=== PATIENT | female | born 2000 | race Caucasian/White ===

== ENCOUNTER → 2021-07-16 | Outpatient (CLI) | payer OTHER ==
--- NOTE | 2021-07-16 13:35 | REP ---
INDICATION: PREG, ANATOMY. COMPARISON: None. TECHNIQUE: Transabdominal obstetric sonography FINDINGS: Scanning through the gravid uterus demonstrates a viable single intrauterine gestation in transverse lie. motion is observed and heart rate is recorded at is 149 beats per minute. A posterior placenta is seen, grade 0, without evidence of placenta previa. Closed cervical length is measured at 3.3 cm transabdominally. No extrauterine abnormality is observed. Amniotic fluid is subjectively normal. No anomaly is seen. The following anatomic structures are identified and felt to be sonographically unremarkable: cranium, choroid plexus, cavum, cerebellum and posterior fossa, face and profile, lungs, left-sided stomach, abdominal wall cord insertion, three-vessel umbilical cord, kidneys and bladder, spine, and upper and lower extremities. Four-chamber heart, cardiac outflow tract views, and diaphragm are less than optimally visualized due to position. Biometry chart: BPD 5.2 cm, 21 weeks 5 days Head circumference 19.1 cm, 21 weeks 3 days Abdominal circumference 16.7 cm, 21 weeks 5 days Femur length 3.5 cm, 21 weeks 0 days Humeral length 3.2 cm, 20 weeks 6 days HC AC ratio normal 1.15 Cephalic index normal 0.75 Estimated weight 420 g, 0 lb 14 oz, 44th percentile for 21 weeks 3 days IMPRESSION: Viable single intrauterine gestation at 21 weeks 2 days by today's composite sonographic criteria. SKIP by today's sonography November 24, 2021. No complication identified. Expected gestational age estimate based on given SKIP of 23 November 2021 is 21 weeks 3 days. heart and diaphragm visualization less than optimal due to variable position. <Electronically signed by Jules Elena > 07/16/21 [id number]
== END ==
LOC: M RAD 10:24
PROVIDERS: ATTEND Registered Nurse
DX: Z34.82 Encounter for supervision of other normal pregnancy, second trimester (principal)

== ENCOUNTER → 2021-07-22 | Outpatient (CLI) | payer OTHER ==
--- NOTE | 2021-07-23 16:50 | ECGEPIP ---
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 No prior ECG available for comparison at the time of interpretation. Electronically Signed on 07-23-2021 16:50:23 EDT by Etienne Richard
== END ==
LOC: M EKG 09:38
PROVIDERS: ATTEND Obstetrics & Gynecology
DX: O24.112 Pre-existing type 2 diabetes mellitus, in pregnancy, second trimester (principal); Z3A.20 20 weeks gestation of pregnancy

== ENCOUNTER → 2021-09-04 | Outpatient (CLI) | payer OTHER ==
--- NOTE | 2021-09-04 14:24 | REP ---
INDICATION: PREG, GROWTH- INULIN DIABETIC COMPARISON: 07/16/2021 TECHNIQUE: Transabdominal obstetrical ultrasound with color Doppler evaluation. FINDINGS: Examination demonstrates a single live intrauterine in cephalic presentation. motion is identified by technologist. Placenta is noted posterior and grade 1 without evidence for placenta previa or abruption. Amniotic fluid volume is normal. Cervix measures 3.4 cm in length and appears closed.. Selected gestational age: 28 weeks 4 days with SKIP 11/23/2021. Gestational age by current measurements 29 weeks 2 days with SKIP 11/18/2021. FHR equals 137 beats per minute. BPD: 7.4 cm at 29 weeks 6 days HC: 27.6 cm at 30 weeks 1 day AC: 24.7 cm at 29 weeks 0 days FL: 5.5 cm at 28 weeks 6 days HL: 4.9 cm at 28 weeks 5 days HC/AC: 1.12 Estimated weight 1335 grams (56thpercentile). JANE: 11.3 cm Umbilical artery SD ratio: 3.35 IMPRESSION: Single live intrauterine in cephalic presentation demonstrating appropriate interval growth. <Electronically signed by Carroll Edwards > 09/04/21 [id number]
== END ==
LOC: M RAD 13:38
PROVIDERS: ATTEND Registered Nurse
DX: Z34.03 Encounter for supervision of normal first pregnancy, third trimester (principal); Z3A.28 28 weeks gestation of pregnancy

== ENCOUNTER 2021-09-13 15:11 | Outpatient (CLI) | payer OTHER ==
[~2021-09-13] VITALS: Ht 154.9 cm; Wt 81.6 kg
[2021-09-13 15:29] VITALS: BP 127/79
[2021-09-13] MEDS ORDERED: INSUR50VL SC (15:34)
[2021-09-13] MEDS ORDERED: INSURSD SC (15:34)
[2021-09-13] MEDS ORDERED: PRENTAB9 PO (15:34)
[2021-09-13] MEDS ORDERED: HOME MED LIST COMPLETE! XX SCH (15:40)
== END 2021-09-13 17:04 | disposition home or self-care (01) ==
LOC: M LDO 15:11
PROVIDERS: ATTEND Obstetrics & Gynecology
DX: O99.810 Abnormal glucose complicating pregnancy (principal); O24.119 Pre-existing type 2 diabetes mellitus, in pregnancy, unspecified trimester; E11.9 Type 2 diabetes mellitus without complications; Z3A.00 Weeks of gestation of pregnancy not specified; Z03.79 Encounter for other suspected maternal and fetal conditions ruled out
CPT/HCPCS: 59025; 76815; G0378; G0463

== ENCOUNTER → 2021-09-20 | Outpatient (CLI) | payer OTHER ==
[~2021-09-20] MED LIST: INSUR50VL SC; INSURSD SC; PRENTAB9 PO
[2021-09-20 12:14] LABS: BASO % 0.3 % (0.0-1.0); EOS # 0.1 10^3/uL (0.0-0.5); EOS % 0.6 % (0.0-3.0); HEMATOCRIT 35.8 % (36.0-47.0); HEMOGLOBIN 11.9 g/dl (12.0-15.5); LYMPH # 2.4 10^3/uL (1.5-5.0); LYMPH % 16.2 % (24.0-44.0); MEAN CORPUSCULAR HEMOGLOBIN 29.2 pg (27.0-33.0); MEAN CORPUSCULAR HGB CONC 33.2 g/dl (32.0-36.5); MEAN CORPUSCULAR VOLUME 87.7 fl (80.0-96.0); MONO # 0.6 10^3/uL (0.0-0.8); MONO % 4.2 % (2.0-8.0); NEUTROPHILS # 11.3 10^3/uL (1.5-8.5); NEUTROPHILS % 77.5 % (36.0-66.0); PLATELET COUNT, AUTOMATED 421 10^3/uL (150-450); RED BLOOD COUNT 4.08 10^6/uL (4.00-5.40); WHITE BLOOD COUNT 14.5 10^3/uL (4.0-10.0)
--- NOTE | 2021-09-20 12:42 | ECGEPIP ---
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
[2021-09-20 12:46] LABS: ALBUMIN 2.8 GM/DL (3.2-5.2); ALT/SGPT 12 U/L (12-78); BILIRUBIN,TOTAL 0.2 MG/DL (0.2-1.0); BLOOD UREA NITROGEN 8 MG/DL (7-18); CALCIUM LEVEL 9.4 MG/DL (8.5-10.1); CARBON DIOXIDE LEVEL 22 MEQ/L (21-32); CHLORIDE LEVEL 109 MEQ/L (98-107); CREATININE FOR GFR 0.58 MG/DL (0.55-1.30); GLUCOSE, FASTING 131 MG/DL (70-100); NT-PRO BNP 14 PG/ML (<125); POTASSIUM SERUM 3.7 MEQ/L (3.5-5.1); SODIUM LEVEL 140 MEQ/L (136-145); TOTAL PROTEIN 6.7 GM/DL (6.4-8.2)
[2021-09-20 15:56] LABS: APPEARANCE, URINE CLEAR (CLEAR); BACTERIA, URINE AUTO 1+ (NEGATIVE); BILIRUBIN, URINE AUTO NEGATIVE (NEGATIVE); BLOOD, URINE BLOOD NEGATIVE (NEGATIVE); COLOR, URINE YELLOW (YELLOW); GLUCOSE, URINE (UA) AUTO 1+ mg/dL (NEGATIVE); KETONE, URINE AUTO NEGATIVE (NEGATIVE); LEUKOCYTE ESTERASE, URINE AUTO 1+ (NEGATIVE); MUCUS, URINE SMALL (NEGATIVE); NITRITE, URINE AUTO NEGATIVE (NEGATIVE); PROTEIN, URINE AUTO NEGATIVE (NEGATIVE); RBC, URINE AUTO 1 /HPF (0-3); SPECIFIC GRAVITY URINE AUTO 1.017 (1.002-1.035); SQUAMOUS EPITHELIAL CELL UR AU 6 /HPF (0-6); UROBILINOGEN, URINE AUTO 0.2 mg/dL (0.0-2.0); WBC, URINE AUTO 8 /HPF (0-3)
== END ==
LOC: M EKG 11:31
PROVIDERS: ATTEND Obstetrics & Gynecology
DX: R00.0 Tachycardia, unspecified (principal); R00.2 Palpitations

== ENCOUNTER 2021-09-25 10:04 | Outpatient (CLI) | payer OTHER ==
[~2021-09-25] VITALS: Ht 154.9 cm; Wt 82.2 kg
[2021-09-25] MEDS ORDERED: HOME MED LIST COMPLETE! XX SCH (10:20)
[2021-09-25 10:22] VITALS: BP 120/72
== END 2021-09-25 13:30 | disposition home or self-care (01) ==
LOC: M LDO 10:04
PROVIDERS: ATTEND Registered Nurse
DX: O9A.213 Injury, poisoning and certain other consequences of external causes complicating pregnancy, third trimester (principal); Y92.9 Unspecified place or not applicable; Y93.9 Activity, unspecified; Y99.9 Unspecified external cause status; Z3A.30 30 weeks gestation of pregnancy
CPT/HCPCS: 59025; 76815; G0378; G0463

== ENCOUNTER 2021-11-03 07:25 | Inpatient (IN) | payer OTHER ==
[2021-11-03] VITALS (23 sets, daily range): BP systolic 123–177; BP diastolic 65–102
[~2021-11-03] VITALS: Ht 154.9 cm; Wt 87.1 kg
[2021-11-03] MEDS ORDERED: ACET-907 PO (07:52)
[2021-11-03] MEDS ORDERED: HUMU1INJ2 SC ×2 (07:52)
[2021-11-03] MEDS ORDERED: ASPI81CH33 PO (07:54)
[2021-11-03] MEDS ORDERED: CALC500T68 PO (07:54)
[2021-11-03] MEDS ORDERED: HOME MED LIST COMPLETE! XX SCH (07:55)
[2021-11-03] MEDS ORDERED: LR 1,000 ML IV SCH (08:25)
[2021-11-03] MEDS ORDERED: OXYTOCIN DRIP 30 UNITS in IV 1 EA IV PRN ×4 (08:25)
[2021-11-03] MEDS ORDERED: CARBOPROST TROMETHAMINE 250 MCG/ML AMP IM PRN (08:25)
[2021-11-03] MEDS ORDERED: LIDOCAINE 1% MDV 20ML VIAL INFIL PRN (08:25)
[2021-11-03] MEDS ORDERED: D5W/0.9% SODIUM CHLORIDE 1,000 ML IV SCH (09:00)
[2021-11-03] MEDS ORDERED: INSULIN REGULAR IN 0.9 % NACL 100 UNIT in IV 1 EA IV SCH ×2 (09:00)
[2021-11-03] MEDS ORDERED: NS 1,000 ML IV SCH (09:00)
[2021-11-03] MEDS ORDERED: INSULIN IV RATE CHANGE DOCUMENTATION ML/HR XX SCH (09:00)
[2021-11-03 09:16] LABS: HEMOGLOBIN 11.8 g/dl (12.0-15.5); MEAN CORPUSCULAR HEMOGLOBIN 28.8 pg (27.0-33.0); MEAN CORPUSCULAR HGB CONC 32.8 g/dl (32.0-36.5); MEAN CORPUSCULAR VOLUME 87.8 fl (80.0-96.0); PLATELET COUNT, AUTOMATED 415 10^3/uL (150-450)
[2021-11-03 09:30] LABS: ALT/SGPT 13 U/L (12-78); BILIRUBIN,TOTAL 0.1 MG/DL (0.2-1.0); CREATININE FOR GFR 0.68 MG/DL (0.55-1.30); LDH LACTATE DEHYDROGENASE 129 U/L (84-246); URIC ACID 4.9 MG/DL (2.6-6.0)
[2021-11-03 09:51] LABS: APPEARANCE, URINE CLOUDY (CLEAR); BACTERIA, URINE AUTO 3+ (NEGATIVE); BILIRUBIN, URINE AUTO NEGATIVE (NEGATIVE); BLOOD, URINE BLOOD NEGATIVE (NEGATIVE); COLOR, URINE YELLOW (YELLOW); GLUCOSE, URINE (UA) AUTO NEGATIVE (NEGATIVE); KETONE, URINE AUTO TRACE mg/dL (NEGATIVE); LEUKOCYTE ESTERASE, URINE AUTO 3+ (NEGATIVE); MUCUS, URINE SMALL (NEGATIVE); NITRITE, URINE AUTO NEGATIVE (NEGATIVE); PROTEIN, URINE AUTO NEGATIVE (NEGATIVE); RBC, URINE AUTO 10 /HPF (0-3); SPECIFIC GRAVITY URINE AUTO 1.011 (1.002-1.035); SQUAMOUS EPITHELIAL CELL UR AU 14 /HPF (0-6); UROBILINOGEN, URINE AUTO 0.2 mg/dL (0.0-2.0); WBC, URINE AUTO 39 /HPF (0-3)
[2021-11-03] MEDS: miSOPROStol 50MCG 1/2 TABLET PO SCH ×4 (09:51→21:25)
[2021-11-03 10:05] LABS: TOTAL PROTEIN,RANDOM URINE 20.7 MG/DL (0.0-12.0)
[2021-11-03] MEDS ORDERED: PROMETHAZINE INJ 25 MG/ML VIAL (J2550) IV ONE (22:45)
[2021-11-03] MEDS ORDERED: BUTORPHANOL 2 MG/ML INJ (J0595) IV ONE (22:45)
[2021-11-03] MEDS: LR 1,000 ML IV SCH (23:15)
[2021-11-04] VITALS (23 sets, daily range): BP systolic 118–200; BP diastolic 65–105
[2021-11-04] MEDS: LR 1,000 ML IV SCH ×2 (01:15→07:25)
[2021-11-04] MEDS: miSOPROStol 50MCG 1/2 TABLET PO SCH (01:25)
[2021-11-04 07:45] LABS: HEMATOCRIT 35.3 % (36.0-47.0); HEMOGLOBIN 11.4 g/dl (12.0-15.5); MEAN CORPUSCULAR HEMOGLOBIN 28.6 pg (27.0-33.0); MEAN CORPUSCULAR HGB CONC 32.3 g/dl (32.0-36.5); MEAN CORPUSCULAR VOLUME 88.7 fl (80.0-96.0); PLATELET COUNT, AUTOMATED 392 10^3/uL (150-450); RED BLOOD COUNT 3.98 10^6/uL (4.00-5.40); WHITE BLOOD COUNT 15.5 10^3/uL (4.0-10.0)
[2021-11-04] MEDS ORDERED: miSOPROStol 50MCG 1/2 TABLET PO ONE ×2 (11:15→15:50)
[2021-11-04] MEDS ORDERED: OXYTOCIN DRIP 30 UNITS in IV 1 EA IV SCH (20:10)
[2021-11-04] MEDS ORDERED: LR 1,000 ML IV SCH (20:10)
[2021-11-05] VITALS (57 sets, daily range): BP systolic 100–151; BP diastolic 46–92
[2021-11-05] MEDS ORDERED: FENTANYL 2MCG/ML ROPIVACAINE 0.2% IN 0.9% NACL 100ML IVBAG As Ordered ONE (00:54)
[2021-11-05] MEDS ORDERED: ONDANSETRON 4MG/2ML VIAL IV PRN (01:55)
[2021-11-05] MEDS ORDERED: LACTATED RINGER'S 1000 ML IV PRN (01:55)
[2021-11-05] MEDS ORDERED: NALOXONE INJ 0.4MG/1ML VIAL (J2310 PER 1MG) IV PRN (01:55)
[2021-11-05] MEDS ORDERED: diphenhydrAMINE 50MG/ML VIAL (J1200) IV PRN (01:55)
[2021-11-05] MEDS ORDERED: ePHEDrine SULFATE 25 MG/5 ML(5MG/ML) SYRINGE IV PRN (01:55)
[2021-11-05] MEDS ORDERED: EPIDURAL COMMENT XX SCH (01:55)
[2021-11-05] MEDS ORDERED: EPIDURAL/PCA KEYS XX PRN (01:55)
[2021-11-05] MEDS ORDERED: REFRIGERATOR IV KEYS XX PRN (01:55)
[2021-11-05] MEDS: FENTANYL/ROPIVACAINE/NACL BAG 100 ML EPIDURAL SCH ×2 (01:55→09:55)
[2021-11-05 06:17] LABS: HEMATOCRIT 34.9 % (36.0-47.0); HEMOGLOBIN 11.5 g/dl (12.0-15.5); MEAN CORPUSCULAR HEMOGLOBIN 29.3 pg (27.0-33.0); MEAN CORPUSCULAR VOLUME 88.8 fl (80.0-96.0); PLATELET COUNT, AUTOMATED 357 10^3/uL (150-450); RED BLOOD COUNT 3.93 10^6/uL (4.00-5.40); WHITE BLOOD COUNT 14.9 10^3/uL (4.0-10.0)
[2021-11-05] MEDS ORDERED: AMPICILLIN SOD 2 GM in D5W MINI-BAG PLUS 100 ML IV SCH (08:00)
[2021-11-05] MEDS: LR 1,000 ML IV SCH (08:24)
[2021-11-05] MEDS ORDERED: GENTAMICIN 120 MG in D5W 50 ML IV SCH (09:00)
[2021-11-05] MEDS ORDERED: ACETAMINOPHEN 500 MG TAB PO ONE (10:15)
[2021-11-05 13:55] LABS: CORD GAS ABE A -6.6; CORD GAS HCO3 A 19.2 MEQ/L; CORD GAS O2 SAT A 33.8 %; CORD GAS PCO2 A 39.3 mmHg; CORD GAS PH A 7.307 UNITS; CORD GAS PO2 A 17.2 mmHg; CORD GAS SBC A 17.9 MEQ/L; CORD GAS TCO2 A 20.4 MEQ/L
[2021-11-05 13:58] LABS: CORD GAS ABE V -4.7; CORD GAS HCO3 V 20.8 MEQ/L; CORD GAS O2 SAT V 38.6 %; CORD GAS PCO2 V 39.9 mmHg; CORD GAS PH V 7.335 UNITS; CORD GAS PO2 V 17.6 mmHg; CORD GAS SBC V 19.5 MEQ/L
[2021-11-05] MEDS ORDERED: DIBUCAINE 1% OINTMENT 30GM TOP PRN (14:25)
[2021-11-05] MEDS ORDERED: RHOGAM 300 MCG (1500 IU) INJ (J2790) IM SCH (14:25)
[2021-11-05] MEDS ORDERED: MEASLES,MUMPS,RUBELLA VACCINE INJ (MMR-II) (90707) SC SCH (14:25)
[2021-11-05] MEDS ORDERED: METHYLERGONOVINE MALEATE 0.2 MG TAB PO PRN (14:25)
[2021-11-05] MEDS: ACETAMINOPHEN TAB 650MG DOSE (2X325MG) PO PRN ×2 (15:18→20:08)
[2021-11-05] MEDS: IBUPROFEN 800 MG TAB PO PRN (17:19)
[2021-11-05] MEDS: DOCUSATE SODIUM 100MG CAPSULE PO PRN (19:42)
[2021-11-06] MEDS: IBUPROFEN 800 MG TAB PO PRN ×2 (02:51→16:07)
[2021-11-06] MEDS: ACETAMINOPHEN TAB 650MG DOSE (2X325MG) PO PRN ×2 (05:53→23:56)
[2021-11-06 05:55] VITALS: BP 118/64
[2021-11-06] MEDS: PRENATAL VITAMINS CHEWABLE TABLET PO SCH (08:03)
[2021-11-06 09:28] LABS: HEMATOCRIT 32.8 % (36.0-47.0); HEMOGLOBIN 10.8 g/dl (12.0-15.5); MEAN CORPUSCULAR HEMOGLOBIN 28.9 pg (27.0-33.0); MEAN CORPUSCULAR HGB CONC 32.9 g/dl (32.0-36.5); MEAN CORPUSCULAR VOLUME 87.7 fl (80.0-96.0); PLATELET COUNT, AUTOMATED 278 10^3/uL (150-450); RED BLOOD COUNT 3.74 10^6/uL (4.00-5.40); WHITE BLOOD COUNT 10.5 10^3/uL (4.0-10.0)
[2021-11-06 18:05] VITALS: BP 138/83
[2021-11-06] MEDS: DOCUSATE SODIUM 100MG CAPSULE PO PRN (19:46)
[2021-11-07 05:46] VITALS: BP 124/73
[2021-11-07] MEDS ORDERED: IBUP80TA PO (07:05)
[2021-11-07] MEDS ORDERED: PRENCHW PO (07:05)
[2021-11-07] MEDS: ACETAMINOPHEN TAB 650MG DOSE (2X325MG) PO PRN (07:54)
[2021-11-07] MEDS: PRENATAL VITAMINS CHEWABLE TABLET PO SCH (07:54)
== END 2021-11-07 13:00 | disposition home or self-care (01) | DRG 807 ==
LOC: M LDI 07:25 → M OBS 11-05 16:38
PROVIDERS: ADMIT Obstetrics & Gynecology; ATTEND Obstetrics & Gynecology
PROC: 3E033VJ Introduction of Other Hormone into Peripheral Vein, Percutaneous Approach (ICD-10-PCS; 2021-11-03)
PROC: 3E0DXGC Introduction of Other Therapeutic Substance into Mouth and Pharynx, External Approach (ICD-10-PCS; 2021-11-04)
PROC: 10E0XZZ Delivery of Products of Conception, External Approach (ICD-10-PCS; principal; 2021-11-05)
PROC: 0KQM0ZZ Repair Perineum Muscle, Open Approach (ICD-10-PCS; 2021-11-05)
DX: O13.4 Gestational [pregnancy-induced] hypertension without significant proteinuria, complicating childbirth (principal); Z37.0 Single live birth; Z3A.37 37 weeks gestation of pregnancy; O24.424 Gestational diabetes mellitus in childbirth, insulin controlled; O26.00 Excessive weight gain in pregnancy, unspecified trimester; O69.82X0 Labor and delivery complicated by other cord entanglement, without compression, not applicable or unspecified; O70.1 Second degree perineal laceration during delivery; O41.14 Placentitis